=== PATIENT | female | born 1975 | race Caucasian/White ===

== ENCOUNTER → 2016-11-02 | Outpatient (CLI) | payer OTHER ==
[~2016-11-02] MED LIST: ALDOMET250 MG PO; ALLERGY EYE DRO10 ML BOTH EYES; DIABETA1.25 MG PO; DOCUSATE SODIU100 MG PO; ENDOCET 5-3251 EACH PO; FLONASE16 G1 BOTH NARES; GLYBURIDE1.25 MG PO; IBUPROFEN800 MG PO; KEFLEX500 MG PO; LABETALOL HCL100 MG PO; LABETALOL HCL200 MG PO; LABETALOL HCL300 MG PO; PRENATAL COMPL1 EACH PO; TUMS500 MG PO; ZANTAC150 MG PO; ZYRTEC10 M3 PO
== END | disposition home or self-care (01) ==
LOC: RAD 13:54
DX: D25.9 Leiomyoma of uterus, unspecified (principal)
CPT/HCPCS: 76856